=== PATIENT | female | born 1955 | race Caucasian/White ===

== ENCOUNTER → 2017-01-06 | Outpatient (CLI) | payer OTHER ==
[~2017-01-06] MED LIST: E400C PO; FLAX100031 PO; HYDR-34 PO; MULT-608 PO; NIA500ERT PO; NITR100C3 PO; OMEG-12 PO; VNL75T PO
--- NOTE | 2017-01-06 15:39 | Diagnostic Imaging Report ---
EXAMINATION: Two views of the right hip. INDICATION: Right hip pain. FINDINGS: There is no fracture, dislocation or radiopaque foreign body. There is mild subchondral sclerotic change in the hip joint and minimal joint space loss. Incidental calcifications in the pelvis are likely phleboliths. IMPRESSION: Minimal degenerative changes. Dictated by: Dictated on workstation # [id number]
--- NOTE | 2017-01-06 15:43 | Diagnostic Imaging Report ---
EXAMINATION: Three views of the lumbar spine. INDICATION: Right hip pain x 9 months. FINDINGS: There is straightening of the spine curvature around the thoracolumbar junction. The alignment of the posterior spinal line, however, is satisfactory. The vertebral body heights are maintained. No significant disc height loss is seen. Minimal anterior osteophytes are seen in the upper lumbar spine levels. The SI joints appear unremarkable. IMPRESSION: Minimal degenerative changes. Straightening of the curvature around the thoracolumbar junction could be secondary to muscle spasm. Dictated by: Dictated on workstation # [id number]
== END ==
LOC: RAD 15:07
PROVIDERS: ATTEND Family Medicine
DX: M54.16 Radiculopathy, lumbar region (principal); M25.551 Pain in right hip
CPT/HCPCS: 72100; 73502

== ENCOUNTER → 2017-01-13 | Outpatient (CLI) | payer OTHER ==
--- NOTE | 2017-01-13 14:55 | Diagnostic Imaging Report ---
PROCEDURE: MRI lumbar spine. TECHNIQUE: Multiplanar, multisequence MRI of the lumbar spine was performed without contrast. INDICATION: Back pain. Right hip pain. FINDINGS: There is satisfactory alignment of the lumbar spine. The vertebral body heights are preserved. Disc heights are also preserved. There is disc desiccation at all levels. The cauda equina and conus medullaris appear grossly unremarkable. There is no significant marrow signal abnormality. The AP dimension of the spinal canal is relatively wide on a congenital basis. T12/L1: There is a mild disc bulge with no significant spinal canal or foraminal stenosis. L1/2: There is a broad-based posterior disc protrusion with minimal caudal migration. No associated spinal canal or foraminal stenosis. L2/3: There is a minimal disc bulge and mild facet hypertrophy. No central canal, lateral recess, or foraminal stenosis. L3/4: No disc herniation. There is mild facet hypertrophy. No central canal, lateral recess, or foraminal stenosis. L4/5: There is a mild disc bulge and mild facet hypertrophy. No central canal stenosis. There is minimal narrowing of the lateral recess on both sides. No foraminal stenosis. L5/S1: There is a minimal disc bulge. Mild facet hypertrophy is seen. No central canal or lateral recess stenosis. Minimal foraminal narrowing is seen in both sides. IMPRESSION: Mild disc and facet degenerative changes. No significant spinal canal or foraminal stenosis at any level. Dictated by: Dictated on workstation # [id number]
== END ==
LOC: RAD 13:50
PROVIDERS: ATTEND Family Medicine
DX: M51.36 Other intervertebral disc degeneration, lumbar region (principal)
CPT/HCPCS: 72148

== ENCOUNTER → 2017-05-04 | Outpatient (CLI) | payer OTHER ==
[2017-05-04 07:57] LABS: BASOPHILS % (AUTO) 0 % (0-10); EOSINOPHILS # (AUTO) 0.3 10^3/uL (0.0-0.3); EOSINOPHILS % (AUTO) 6 % (0-10); LYMPHOCYTES # (AUTO) 1.8 X 10^3 (1.0-4.0); LYMPHOCYTES % (AUTO) 35 % (12-44); MEAN CORPUSCULAR HEMOGLOBIN 30 PG (25-34); MEAN CORPUSCULAR HGB CONC 32 G/DL (32-36); MEAN CORPUSCULAR VOLUME 95 FL (80-99); MEAN PLATELET VOLUME 9.9 FL (7.4-10.4); MONOCYTES # (AUTO) 0.4 X 10^3 (0.0-1.0); MONOCYTES % (AUTO) 8 % (0-12); NEUTROPHILS # (AUTO) 2.7 X 10^3 (1.8-7.8); NEUTROPHILS % (AUTO) 51 % (42-75); PLATELET COUNT 282 10^3/uL (130-400); RED BLOOD COUNT 4.13 10^6/uL (4.35-5.85); RED CELL DISTRIBUTION WIDTH 11.8 % (10.0-14.5); WHITE BLOOD COUNT 5.2 10^3/uL (4.3-11.0)
[2017-05-04 08:19] LABS: ALANINE AMINOTRANSFERASE 27 U/L (0-55); ALBUMIN 4.2 GM/DL (3.2-4.5); ANION GAP 10 MMOL/L (5-14); ASPARTATE AMINO TRANSFERASE 19 U/L (5-34); BILIRUBIN,TOTAL 0.4 MG/DL (0.1-1.0); BLOOD UREA NITROGEN 13 MG/DL (7-18); BUN/CREATININE RATIO 16; CALCIUM 9.3 MG/DL (8.5-10.1); CARBON DIOXIDE 24 MMOL/L (21-32); CHLORIDE 107 MMOL/L (98-107); CHOLESTEROL 170 MG/DL (< 200); CREATININE SERUM 0.83 MG/DL (0.60-1.30); DIRECT LDL 91 MG/DL (1-129); GFR ESTIMATED > 60; GLUCOSE 105 MG/DL (70-105); POTASSIUM 4.3 MMOL/L (3.6-5.0); SODIUM 141 MMOL/L (135-145); TRIGLYCERIDES 65 MG/DL (<150); VLDL CHOLESTEROL 13 MG/DL (5-40)
[2017-05-04 08:38] LABS: THYROID STIMULATING HORMONE 1.34 UIU/ML (0.35-4.94)
== END ==
LOC: LAB 07:42
PROVIDERS: ATTEND Family Medicine
DX: R73.9 Hyperglycemia, unspecified (principal)
CPT/HCPCS: 36415; 80053; 80061; 83036; 84443; 85025

== ENCOUNTER → 2017-08-05 | Outpatient (CLI) | payer OTHER ==
--- NOTE | 2017-08-05 17:06 | Diagnostic Imaging Report ---
Bilateral screening mammogram 2D views with tomosynthesis The current study was also evaluated with a Computer Aided Detection (CAD) system. Indication: Screening. No current complaints stated on the questionnaire. COMPARISON: 08/04/2016. Findings: The breasts are composed of heterogeneously dense parenchyma which would decrease mammographic sensitivity. Benign-appearing calcifications are seen. Lobulated 1.3 cm left breast nodule with circumscribed margins and the upper right breast similar nodule similar to prior studies are likely benign such as intramammary lymph nodes. Allowing for technique and positional differences, no suspicious change is seen. IMPRESSION: No significant change. ACR BI-RADS Category 2: Benign findings. Result letter will be mailed to the patient. Note: At least 10% of breast cancer is not imaged by mammography. Dictated by: Dictated on workstation # [id number]
== END ==
LOC: RAD 09:34
PROVIDERS: ATTEND Nurse Practitioner Family
DX: Z12.31 Encounter for screening mammogram for malignant neoplasm of breast (principal)
CPT/HCPCS: 77067

== ENCOUNTER → 2018-02-16 | Outpatient (CLI) | payer OTHER ==
[2018-02-16 08:25] LABS: BASOPHILS % (AUTO) 0 % (0-10); EOSINOPHILS # (AUTO) 0.3 10^3/uL (0.0-0.3); EOSINOPHILS % (AUTO) 6 % (0-10); HEMATOCRIT 40 % (35-52); HEMOGLOBIN 12.7 G/DL (11.5-16.0); LYMPHOCYTES # (AUTO) 1.4 X 10^3 (1.0-4.0); LYMPHOCYTES % (AUTO) 30 % (12-44); MEAN CORPUSCULAR HEMOGLOBIN 30 PG (25-34); MEAN CORPUSCULAR HGB CONC 32 G/DL (32-36); MEAN CORPUSCULAR VOLUME 93 FL (80-99); MEAN PLATELET VOLUME 10.6 FL (7.4-10.4); MONOCYTES # (AUTO) 0.4 X 10^3 (0.0-1.0); MONOCYTES % (AUTO) 9 % (0-12); NEUTROPHILS # (AUTO) 2.7 X 10^3 (1.8-7.8); NEUTROPHILS % (AUTO) 56 % (42-75); PLATELET COUNT 256 10^3/uL (130-400); RED BLOOD COUNT 4.26 10^6/uL (4.35-5.85); RED CELL DISTRIBUTION WIDTH 12.7 % (10.0-14.5); WHITE BLOOD COUNT 4.9 10^3/uL (4.3-11.0)
[2018-02-16 08:48] LABS: ALANINE AMINOTRANSFERASE 30 U/L (0-55); ALBUMIN 4.5 GM/DL (3.2-4.5); ALKALINE PHOSPHATASE 59 U/L (40-136); BILIRUBIN,TOTAL 0.4 MG/DL (0.1-1.0); BUN/CREATININE RATIO 20; CALCIUM 9.8 MG/DL (8.5-10.1); CARBON DIOXIDE 27 MMOL/L (21-32); CHLORIDE 108 MMOL/L (98-107); CHOLESTEROL 176 MG/DL (< 200); CREATININE SERUM 0.88 MG/DL (0.60-1.30); GFR ESTIMATED > 60; GLUCOSE 95 MG/DL (70-105); HDL CHOLESTEROL 66 MG/DL (40-60); POTASSIUM 4.2 MMOL/L (3.6-5.0); SODIUM 142 MMOL/L (135-145); TOTAL PROTEIN 7.1 GM/DL (6.4-8.2); TRIGLYCERIDES 71 MG/DL (<150); VLDL CHOLESTEROL 14 MG/DL (5-40)
== END ==
LOC: LAB 07:56
PROVIDERS: ATTEND Family Medicine
DX: Z00.00 Encounter for general adult medical examination without abnormal findings (principal); E78.5 Hyperlipidemia, unspecified; R73.9 Hyperglycemia, unspecified
CPT/HCPCS: 36415; 80053; 80061; 83036; 84443; 85025

== ENCOUNTER → 2018-04-25 | Outpatient (CLI) | payer OTHER ==
--- NOTE | 2018-04-25 17:36 | Diagnostic Imaging Report ---
INDICATION: [id number] history of smoking. COMPARISON: None. TECHNIQUE: Routine noncontrast low dose CT of the chest was performed for screening purposes. FINDINGS: Evaluation of lung licea demonstrates multiple subcentimeter pulmonary micronodules bilaterally. These are as follows: * 4 mm micronodule within the right apex (image 41, series 4). * 4-5 mm subpleural micronodule within the posterior margins of the left upper lobe (image 63, series 4). * 5 mm subpleural micronodule within the lateral margins of the left lower lobe (image 228, series 4). * 4 mm micronodule within the posterior subpleural margins of the right lower lobe (image 234, series 4). There is no focal consolidation, large effusion, nor pneumothorax. Cardiomediastinal structures are somewhat suboptimally evaluated given the low-dose noncontrast nature of the exam, but heart size is shown to be within normal limits. There is no large pericardial effusion. There is a large hiatal hernia. No pathologically enlarged or morphologically abnormal adenopathy is identified within the mediastinum, thiago, nor axilla. Bony structures show age-related degenerative changes. No lytic or blastic bony lesions are seen. Included portions of the upper abdomen are unremarkable. IMPRESSION: 1. Multiple bilateral subcentimeter pulmonary micronodules as described above. Given the size, continued annual low-dose screening CT chest is recommended. 2. Large hiatal hernia. LUNG-RADS CATEGORY: 2 MODIFIER: As above Dictated by: Dictated on workstation # [id number]
== END ==
LOC: RAD 14:18
PROVIDERS: ATTEND Family Medicine
DX: Z12.2 Encounter for screening for malignant neoplasm of respiratory organs (principal); K44.9 Diaphragmatic hernia without obstruction or gangrene; R91.8 Other nonspecific abnormal finding of lung field; Z87.891 Personal history of nicotine dependence

== ENCOUNTER 2020-07-25 15:58 | Emergency (ER) | payer BC, OTHER ==
[~2020-07-25] VITALS: Ht 172 cm; Wt 65.0 kg
[2020-07-25] MEDS ORDERED: fentaNYL INJECTION 100 MCG/2 ML AMP IVP STA ×2 (16:12→17:12)
[2020-07-25] MEDS ORDERED: ONDANSETRON 4 MG/2 ML (SDV) Z0FRAN IVP STA (16:12)
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
--- NOTE | 2020-07-25 16:54 | Diagnostic Imaging Report ---
INDICATION: Fracture FINDINGS: There is a proximal humeral fracture longitudinally extending through the greater tuberosity with a horizontal component of the neck. No dislocation. The mid shaft and distal humerus intact. IMPRESSION: Proximal humeral fractures involve the neck and head. Dictated by: Dictated on workstation # [id number]
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
[2020-07-25 18:00] VITALS: BP 122/62
[2020-07-25] MEDS ORDERED: ONDA4TAB11 PO (18:03)
[2020-07-25] MEDS ORDERED: ACHD5005 PO (18:03)
== END 2020-07-25 18:09 | disposition home or self-care (01) ==
LOC: EDUNIT# 15:58 → ER FS 16:01
DX: S42.291A Other displaced fracture of upper end of right humerus, initial encounter for closed fracture (principal); S42.251A Displaced fracture of greater tuberosity of right humerus, initial encounter for closed fracture; S63.502A Unspecified sprain of left wrist, initial encounter; F41.9 Anxiety disorder, unspecified; V86.99XA Unspecified occupant of other special all-terrain or other off-road motor vehicle injured in nontraffic accident, initial encounter
CPT/HCPCS: 73030; 73060; 73110; 99284; L3650

== ENCOUNTER → 2020-08-13 | Outpatient (CLI) | payer BC ==
[~2020-08-13] MED LIST changes: +ACHD5005 PO; +ONDA4TAB11 PO
--- NOTE | 2020-08-13 10:15 | Diagnostic Imaging Report ---
INDICATION: Right shoulder fracture followup. EXAMINATION: Right shoulder from 08/13/2020. COMPARISON: 07/25/2020 FINDINGS: Comminuted proximal humerus fracture is unchanged in appearance and alignment. No significant surrounding callus formation seen at this time. Minimal minimal widening at the glenohumeral joint space is noted likely due to an underlying joint effusion IMPRESSION: 1. Stable appearance of the proximal humerus fracture. Dictated by: Dictated on workstation # [id number]
== END ==
LOC: RAD FS 09:20
PROVIDERS: ATTEND Nurse Practitioner
DX: S42.231D 3-part fracture of surgical neck of right humerus, subsequent encounter for fracture with routine healing (principal)
CPT/HCPCS: 73030

== ENCOUNTER → 2020-08-13 | Outpatient (CLI) | payer BC ==
--- NOTE | 2020-08-13 12:13 | Diagnostic Imaging Report ---
INDICATION: Nondisplaced fracture of the navicular bone. COMPARISON: 07/25/2020. TECHNIQUE: 3 radiographs of the left wrist dated 08/13/2020 FINDINGS: Minimal lucency is identified extending along the mid aspect of the scaphoid without cortical disruption. No significant sclerosis of the proximal pole of the scaphoid. No additional fracture. No dislocation. Scattered degenerative changes, by far greatest involving the 1st CMC joint. No suspicious radiopaque foreign body. IMPRESSION: Lucency involving the mid aspect of the scaphoid is favored to simply relate to normal trabeculation versus vascular channel, though nondisplaced fracture not completely excluded is present. There is no associated periosteal reaction or sclerosis of the proximal pole. Radiographic follow-up is recommended if there remains clinical concern. Scattered degenerative changes, greatest involving the 1st CMC joint. Dictated by: Dictated on workstation # [id number]
== END ==
LOC: RAD FS 09:04
PROVIDERS: ATTEND Nurse Practitioner
DX: S62.025A Nondisplaced fracture of middle third of navicular [scaphoid] bone of left wrist, initial encounter for closed fracture (principal); X58.XXXA Exposure to other specified factors, initial encounter; M19.90 Unspecified osteoarthritis, unspecified site
CPT/HCPCS: 73110

== ENCOUNTER → 2020-09-05 | Outpatient (CLI) | payer BC ==
--- NOTE | 2020-09-05 10:29 | Diagnostic Imaging Report ---
Indication: Followup right shoulder fracture. Time of exam: 9:11 AM Correlation is made with prior radiograph of the right shoulder from 08/13/2020. Impacted fracture of the proximal humerus with involvement of the greater tuberosity is again noted. Glenohumeral alignment is normal. The acromioclavicular alignment is normal. The fracture lines of the shoulder remain clearly visible. There is very little callus formation present. Impression: Proximal humerus fracture, stable when compared with 08/13/2020. There is very little callus formation present with fracture lines clearly visible. Dictated by: Dictated on workstation # [id number]
--- NOTE | 2020-09-05 10:32 | Diagnostic Imaging Report ---
INDICATION: Wrist fracture, follow-up. TIME OF EXAM: 9:14 AM Comparison is made with prior radiograph from 08/13/2020. FINDINGS: Overlying cast material obscures bone detail. In particular this obscures the navicular. Distal radius and ulna are intact. Carpal bones are stable. Alignment is stable. There are some degenerative changes at the triscaphe and 1st CMC joints. Metacarpals are intact. IMPRESSION: Stable left wrist radiographs when compared with exam from 08/13/2020. Dictated by: Dictated on workstation # [id number]
== END ==
LOC: RAD FS 08:57
PROVIDERS: ATTEND Nurse Practitioner
DX: S42.231D 3-part fracture of surgical neck of right humerus, subsequent encounter for fracture with routine healing (principal); S62.025D Nondisplaced fracture of middle third of navicular [scaphoid] bone of left wrist, subsequent encounter for fracture with routine healing; X58.XXXD Exposure to other specified factors, subsequent encounter
CPT/HCPCS: 73030; 73110

== ENCOUNTER → 2020-09-26 | Outpatient (CLI) | payer BC ==
--- NOTE | 2020-09-26 09:06 | Diagnostic Imaging Report ---
INDICATION: NONDISPLACED FRACTURE OF MIDDLE THIRD OF NAVICULAR BONE OF LEFT WRIST TECHNIQUE: Four views of the left wrist CORRELATION STUDY: 09/05/2020 FINDINGS: Cast material has been removed. There is faint sclerosis of the mid scaphoid bone consistent with reparative change. There is no definitive residual fracture line demonstrated. Alignment is anatomic. There is narrowing at the radiocarpal row. There is bone fragmentation at the 1st carpometacarpal articulation likely chronic and degenerative in nature. Does suggest mild soft tissue edema. IMPRESSION: 1. Reparative changes suggested at the mid scaphoid bone. A definitive fracture line is not visualized. 2. Rather advanced degenerative changes the 1st carpometacarpal articulation. Dictated by: Dictated on workstation # [id number]
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
== END ==
LOC: RAD FS 08:32
PROVIDERS: ATTEND Nurse Practitioner
DX: S42.231D 3-part fracture of surgical neck of right humerus, subsequent encounter for fracture with routine healing (principal); S62.025D Nondisplaced fracture of middle third of navicular [scaphoid] bone of left wrist, subsequent encounter for fracture with routine healing; M18.12 Unilateral primary osteoarthritis of first carpometacarpal joint, left hand
CPT/HCPCS: 73030; 73110